=== PATIENT | female | born 1965 | race Caucasian/White ===

== ENCOUNTER → 2017-02-16 | Outpatient (CLI) | payer OTHER ==
[~2017-02-16] MED LIST: AMOXICILLIN500 MG PO; ATIVAN0.5 MG PO; DAYPRO600 M1 PO; MACROBID100 M1 PO; MOTRIN800 MG PO; NORFLEX100 MG PO; PHENOBARBITAL PO; PHENOBARBITAL30 MG PO; PHENOBARBITAL32.4 M1 PO; PHENOBARBITAL64.8 MG PO; TEGRETOL100 MG PO; VICODIN 500 MG-1 TAB PO; VIMPAT100 MG PO; XANAX0.25 MG PO
== END | disposition home or self-care (01) ==
LOC: MAMMO 15:23
DX: Z12.31 Encounter for screening mammogram for malignant neoplasm of breast (principal)

== ENCOUNTER → 2017-03-01 | Outpatient (CLI) | payer OTHER | END | disposition home or self-care (01) | LOC: RAD 11:37 | DX: R07.9 Chest pain, unspecified (principal); R06.02 Shortness of breath; Z87.891 Personal history of nicotine dependence ==

== ENCOUNTER 2017-03-15 19:20 | Emergency (ER) | payer OTHER ==
[~2017-03-15] VITALS: Ht 152.4 cm; Wt 56.2 kg
[2017-03-15 19:32] VITALS: BP 139/98
== END 2017-03-15 20:19 | disposition home or self-care (01) ==
LOC: ED 19:20
DX: S61.012A Laceration without foreign body of left thumb without damage to nail, initial encounter (principal); G40.909 Epilepsy, unspecified, not intractable, without status epilepticus; Z98.51 Tubal ligation status; Z88.2 Allergy status to sulfonamides; W45.8XXA Other foreign body or object entering through skin, initial encounter; Y93.89 Activity, other specified; Y92.89 Other specified places as the place of occurrence of the external cause; Y99.9 Unspecified external cause status

== ENCOUNTER 2017-07-14 16:38 | Emergency (ER) | payer OTHER ==
[~2017-07-14] VITALS: Wt 58.1 kg
[2017-07-14 17:09] LABS: BASO % 0.3 % (0.0-1.0); EOS # 0.1 10*3/uL (0.0-0.4); EOS % 1.3 % (1.0-4.0); HEMATOCRIT 42.9 % (37.0-47.0); HEMOGLOBIN 14.8 g/dl (12.0-16.0); LYMPH # 0.7 10*3/uL (1.3-4.4); LYMPH % 12.1 % (27.0-41.0); MEAN CELL VOLUME 97.5 fl (81.0-99.0); MEAN CORPUSCULAR HGB 33.6 pg (27.0-31.0); MEAN CORPUSCULAR HGB CONC 34.5 g/dl (33.0-37.0); MEAN PLATELET VOLUME 10.1 fl (9.6-12.3); MONO # 0.3 10*3/uL (0.1-1.0); MONO % 4.4 % (3.0-9.0); NEUT % 81.7 % (47.0-73.0); PLATELET COUNT AUTOMATED 196 10*3/uL (130-400); RED CELL DISTRI WIDTH 11.7 % (0-14.5); WHITE BLOOD COUNT 6.1 10*3/uL (4.8-10.8)
[2017-07-14 17:18] LABS: ACT PARTIAL THROMBO TIME 22.9 SECONDS (20.8-31.5)
[2017-07-14 17:25] LABS: ALBUMIN 4.3 gm/dl (3.1-4.5); ALKALINE PHOSPHATASE 107 U/L (45-117); BUN 11 mg/dl (7-24); CHLORIDE 99 mmol/L (98-107); POTASSIUM 4.1 mmol/L (3.5-5.1); SGOT/AST 24 IU/L (3-35); SGPT/ALT 31 U/L (12-78); SODIUM 135 mmol/L (136-145); TOTAL PROTEIN 7.8 gm/dL (6.4-8.2)
[2017-07-14 17:26] LABS: PHENOBARBITAL (LUMINAL) 20.2 ug/ml (15-40)
[2017-07-14 18:07] LABS: BILIRUBIN NEGATIVE (NEGATIVE); BLOOD TRACE-INTACT (NEGATIVE); CLARITY CLEAR (CLEAR); COLOR YELLOW (YELLOW); GLUCOSE NEGATIVE (NEGATIVE); KETONE NEGATIVE (NEGATIVE); LEUKO ESTERASE 3+ (NEGATIVE); NITRITE NEGATIVE (NEGATIVE); SPECIFIC GRAVITY <= 1.005 (1.005-1.030); UROBILINOGEN 0.2 E.U./dl (0.2-1.0)
[2017-07-14 18:14] LABS: BACTERIA 3+; WBC 31-40 wbc/hpf (0-5)
[2017-07-15 18:32] VITALS: BP 144/72
== END 2017-07-15 18:35 | disposition short-term general hospital (02) ==
LOC: ED 16:38
PROVIDERS: Emergency Medicine
DX: G40.909 Epilepsy, unspecified, not intractable, without status epilepticus (principal); R53.83 Other fatigue; Z88.2 Allergy status to sulfonamides

== ENCOUNTER 2017-09-19 14:15 | Emergency (ER) | payer OTHER ==
[~2017-09-19] VITALS: Wt 56.2 kg
[2017-09-19 14:45] LABS: BILIRUBIN NEGATIVE (NEGATIVE); BLOOD NEGATIVE (NEGATIVE); CLARITY SL CLOUDY (CLEAR); COLOR YELLOW (YELLOW); GLUCOSE NEGATIVE (NEGATIVE); KETONE NEGATIVE (NEGATIVE); LEUKO ESTERASE 2+ (NEGATIVE); NITRITE NEGATIVE (NEGATIVE); UROBILINOGEN 0.2 E.U./dl (0.2-1.0)
[2017-09-19 14:49] LABS: BACTERIA 2+; RBC 0-2 rbc/hpf (0-2); WBC 21-30 wbc/hpf (0-5)
[2017-09-19 14:51] VITALS: BP 140/76
[2017-09-19 14:57] LABS: BUN 12 mg/dl (7-24); CHLORIDE 99 mmol/L (98-107); CREATININE 0.89 mg/dL (0.55-1.02); POTASSIUM 3.9 mmol/L (3.5-5.1); SODIUM 135 mmol/L (136-145)
[2017-09-19 15:14] LABS: PHENOBARBITAL (LUMINAL) 22.3 ug/ml (15-40)
== END 2017-09-19 15:25 | disposition home or self-care (01) ==
LOC: ED 14:15
PROVIDERS: Emergency Medicine
DX: F41.0 Panic disorder [episodic paroxysmal anxiety] (principal); Z88.2 Allergy status to sulfonamides

== ENCOUNTER 2017-10-24 08:28 | Emergency (ER) | payer OTHER ==
[~2017-10-24] VITALS: Ht 157.4 cm; Wt 57.6 kg
[2017-10-24 08:32] VITALS: BP 142/92
== END 2017-10-24 09:53 | disposition home or self-care (01) ==
LOC: ED 08:28
DX: S99.191A Other physeal fracture of right metatarsal, initial encounter for closed fracture (principal); Z88.2 Allergy status to sulfonamides; W01.0XXA Fall on same level from slipping, tripping and stumbling without subsequent striking against object, initial encounter; Y93.89 Activity, other specified; Y92.89 Other specified places as the place of occurrence of the external cause; Y99.8 Other external cause status

== ENCOUNTER → 2017-10-28 | Outpatient (CLI) | payer OTHER | END | disposition home or self-care (01) | LOC: ORTHO 03:40 | DX: S92.353A Displaced fracture of fifth metatarsal bone, unspecified foot, initial encounter for closed fracture (principal); E55.9 Vitamin D deficiency, unspecified; X58.XXXA Exposure to other specified factors, initial encounter; Y93.89 Activity, other specified; Y92.89 Other specified places as the place of occurrence of the external cause; Y99.8 Other external cause status ==

== ENCOUNTER → 2017-10-29 | Outpatient (CLI) | payer OTHER | END | disposition home or self-care (01) | LOC: RAD 10:24 | DX: M50.322 Other cervical disc degeneration at C5-C6 level (principal) ==

== ENCOUNTER → 2017-11-08 | Outpatient (CLI) | payer OTHER | END | disposition home or self-care (01) | LOC: ORTHO 01:55 | DX: Z47.89 Encounter for other orthopedic aftercare (principal) ==

== ENCOUNTER → 2017-12-10 | Outpatient (CLI) | payer OTHER | END | disposition home or self-care (01) | LOC: ORTHO 04:08 | DX: S92.351D Displaced fracture of fifth metatarsal bone, right foot, subsequent encounter for fracture with routine healing (principal); X58.XXXD Exposure to other specified factors, subsequent encounter ==

== ENCOUNTER → 2017-12-27 | Outpatient (CLI) | payer OTHER | END | disposition home or self-care (01) | LOC: ORTHO 01:03 | DX: S82.831D Other fracture of upper and lower end of right fibula, subsequent encounter for closed fracture with routine healing (principal); X58.XXXD Exposure to other specified factors, subsequent encounter ==

== ENCOUNTER 2018-04-10 09:05 | Emergency (ER) | payer OTHER ==
[~2018-04-10] VITALS: Ht 154.9 cm; Wt 58.1 kg
[2018-04-10 09:08] VITALS: BP 141/91
[2018-04-10] MEDS ORDERED: ROBAXIN500 M1 PO (10:59)
== END 2018-04-10 11:01 | disposition home or self-care (01) ==
LOC: ED 09:05
DX: S29.011A Strain of muscle and tendon of front wall of thorax, initial encounter (principal); Z88.2 Allergy status to sulfonamides; X58.XXXA Exposure to other specified factors, initial encounter; Y93.89 Activity, other specified; Y92.89 Other specified places as the place of occurrence of the external cause; Y99.8 Other external cause status

== ENCOUNTER 2018-06-01 15:28 | Emergency (ER) | payer OTHER ==
[~2018-06-01] VITALS: Wt 57.2 kg
[~2018-06-01 15:28] MED LIST changes: +ROBAXIN500 M1 PO
[2018-06-01 15:29] VITALS: BP 172/110
== END 2018-06-01 16:27 | disposition home or self-care (01) ==
LOC: ED 15:28
DX: T23.241A Burn of second degree of multiple right fingers (nail), including thumb, initial encounter (principal); T23.232A Burn of second degree of multiple left fingers (nail), not including thumb, initial encounter; Z88.2 Allergy status to sulfonamides; X08.8XXA Exposure to other specified smoke, fire and flames, initial encounter; Y93.89 Activity, other specified; Y92.89 Other specified places as the place of occurrence of the external cause; Y99.8 Other external cause status

== ENCOUNTER 2018-07-08 15:57 | Emergency (ER) | payer OTHER ==
[~2018-07-08] VITALS: Ht 152.4 cm; Wt 57.2 kg
[2018-07-08 16:06] VITALS: BP 140/68
== END 2018-07-08 18:00 | disposition home or self-care (01) ==
LOC: ED 15:57
DX: M79.604 Pain in right leg (principal); R03.0 Elevated blood-pressure reading, without diagnosis of hypertension; Z88.2 Allergy status to sulfonamides; Z79.899 Other long term (current) drug therapy; W00.0XXA Fall on same level due to ice and snow, initial encounter; Y93.89 Activity, other specified; Y92.89 Other specified places as the place of occurrence of the external cause; Y99.8 Other external cause status

== ENCOUNTER → 2018-07-08 | Outpatient (CLI) | payer OTHER | END | disposition home or self-care (01) | LOC: RAD 10:31 | DX: M25.561 Pain in right knee (principal); M79.604 Pain in right leg; W19.XXXD Unspecified fall, subsequent encounter ==

== ENCOUNTER 2018-09-13 13:28 | Emergency (ER) | payer OTHER ==
[~2018-09-13] VITALS: Ht 154.9 cm; Wt 57.2 kg
[2018-09-13 13:29] VITALS: BP 156/99
== END 2018-09-13 16:29 | disposition home or self-care (01) ==
LOC: ED 13:28
DX: S92.411A Displaced fracture of proximal phalanx of right great toe, initial encounter for closed fracture (principal); G40.909 Epilepsy, unspecified, not intractable, without status epilepticus; Z98.51 Tubal ligation status; Z88.2 Allergy status to sulfonamides; W10.8XXA Fall (on) (from) other stairs and steps, initial encounter; Y93.89 Activity, other specified; Y92.89 Other specified places as the place of occurrence of the external cause; Y99.9 Unspecified external cause status

== ENCOUNTER 2018-09-22 10:26 | Emergency (ER) | payer OTHER ==
[~2018-09-22] VITALS: Ht 152.4 cm; Wt 58.1 kg
[2018-09-22 10:27] VITALS: BP 160/90
== END 2018-09-22 12:09 | disposition home or self-care (01) ==
LOC: ED 10:26
DX: S62.311A Displaced fracture of base of second metacarpal bone, left hand, initial encounter for closed fracture (principal); Z88.2 Allergy status to sulfonamides; W18.39XA Other fall on same level, initial encounter; Y93.89 Activity, other specified; Y92.89 Other specified places as the place of occurrence of the external cause; Y99.8 Other external cause status

== ENCOUNTER → 2018-09-26 | Outpatient (CLI) | payer OTHER | END | disposition home or self-care (01) | LOC: ORTHO 00:59 | DX: S62.301A Unspecified fracture of second metacarpal bone, left hand, initial encounter for closed fracture (principal); S62.002A Unspecified fracture of navicular [scaphoid] bone of left wrist, initial encounter for closed fracture; M19.032 Primary osteoarthritis, left wrist; X58.XXXA Exposure to other specified factors, initial encounter; Y93.89 Activity, other specified; Y92.89 Other specified places as the place of occurrence of the external cause; Y99.8 Other external cause status ==

== ENCOUNTER → 2018-09-28 | Outpatient (CLI) | payer OTHER | END | disposition home or self-care (01) | LOC: MRI 15:00 | DX: S62.311A Displaced fracture of base of second metacarpal bone, left hand, initial encounter for closed fracture (principal); M19.042 Primary osteoarthritis, left hand; M93.1 Kienbock's disease of adults; M67.442 Ganglion, left hand; M79.89 Other specified soft tissue disorders; X58.XXXA Exposure to other specified factors, initial encounter; Y93.89 Activity, other specified; Y92.89 Other specified places as the place of occurrence of the external cause; Y99.8 Other external cause status ==

== ENCOUNTER → 2018-12-09 | Outpatient (CLI) | payer OTHER | END | disposition home or self-care (01) | LOC: ORTHO 00:17 | DX: S62.340D Nondisplaced fracture of base of second metacarpal bone, right hand, subsequent encounter for fracture with routine healing (principal); X58.XXXD Exposure to other specified factors, subsequent encounter ==

== ENCOUNTER 2019-06-19 11:11 | Emergency (ER) | payer OTHER ==
[~2019-06-19] VITALS: Ht 154.9 cm; Wt 58.1 kg
[2019-06-19 11:15] VITALS: BP 169/99
[2019-06-19] MEDS ORDERED: PREDNISONE50 MG PO (12:58)
== END 2019-06-19 12:58 | disposition home or self-care (01) ==
LOC: ED 11:11
DX: M77.9 Enthesopathy, unspecified (principal); M25.532 Pain in left wrist; G40.909 Epilepsy, unspecified, not intractable, without status epilepticus; I10 Essential (primary) hypertension; Z88.2 Allergy status to sulfonamides; Z79.899 Other long term (current) drug therapy

== ENCOUNTER 2019-09-17 21:11 | Inpatient (IN) | payer OTHER ==
[~2019-09-17] VITALS: Ht 154.9 cm; Wt 60.9 kg
[~2019-09-17 21:11] MED LIST changes: +PREDNISONE50 MG PO
[2019-09-17 21:15] VITALS: BP 166/118
[2019-09-17 21:43] VITALS: BP 131/87
--- NOTE | 2019-09-17 22:21 | NUR ---
ATTEMPTED TO COLLECT URINE SPECIMEN. PT MISSED HAT WHEN URINATING. WILL TRY AGAIN LATER. PT VISIBLY UPSET AND WANTED TO CONTACT HER . [employer] INTACT. VSS. CALL LIGHT WITHIN REACH.
[2019-09-17 22:25] LABS: BASO % 0.8 % (0.0-1.0); EOS # 0.2 10*3/uL (0.0-0.4); EOS % 3.4 % (1.0-4.0); HEMATOCRIT 43.9 % (37.0-47.0); LYMPH # 1.1 10*3/uL (1.3-4.4); LYMPH % 22.3 % (27.0-41.0); MEAN CELL VOLUME 98.9 fl (81.0-99.0); MEAN CORPUSCULAR HGB 34.7 pg (27.0-31.0); MEAN CORPUSCULAR HGB CONC 35.1 g/dl (33.0-37.0); MEAN PLATELET VOLUME 9.4 fl (9.6-12.3); MONO # 0.4 10*3/uL (0.1-1.0); MONO % 7.4 % (3.0-9.0); NEUT # 3.3 10*3/uL (2.3-7.9); NEUT % 65.5 % (47.0-73.0); PLATELET COUNT AUTOMATED 181 10*3/uL (130-400); RED BLOOD COUNT 4.44 10*6/uL (4.10-5.10); RED CELL DISTRI WIDTH 11.9 % (0-14.5)
[2019-09-17 22:40] LABS: ACT PARTIAL THROMBO TIME 27.7 SECONDS (20.0-32.1); INTERNATIONAL NORM RATIO 0.9 (2.0-3.5)
[2019-09-17 22:42] LABS: ALBUMIN 4.2 gm/dl (3.1-4.5); ALKALINE PHOSPHATASE 111 U/L (45-117); BUN 12 mg/dl (7-24); CHLORIDE 101 mmol/L (98-107); CREATININE 0.68 mg/dL (0.55-1.02); LIPASE 111 U/L (73-393); POTASSIUM 3.5 mmol/L (3.5-5.1); SGOT/AST 22 IU/L (3-35); SGPT/ALT 33 U/L (12-78); SODIUM 130 mmol/L (136-145); TOTAL PROTEIN 7.8 gm/dL (6.4-8.2)
[2019-09-17 22:51] VITALS: BP 133/76
[2019-09-17 22:53] LABS: ACETAMINOPHEN (TYLENOL) < 5.0 ug/ml (10-30); TROPONIN I < 0.015 ng/ml (<0.045)
[2019-09-18 01:05] VITALS: BP 131/77
--- NOTE | 2019-09-18 01:05 | NUR ---
A 54, admitted to , under the services of DEMETRIUS Paulson DO with a diagnosis of SEIZURES,ALCOHOL INTOXICATION. Chief complaint is SEIZURE. Patient arrived via stretcher from ER. Monitor applied. Initial assessment completed. Vital signs taken and recorded. DR. MARINELLI notified of admission to the unit. Orders received. See assessment for past medical history, medications and allergies. Patient and/or family oriented to [facility]. visitation policy reviewed. Clothing/patient valuable form completed. RODRÍGUEZ ROBBINS RN
[2019-09-18 06:03] LABS: BASO % 0.8 % (0.0-1.0); EOS # 0.2 10*3/uL (0.0-0.4); HEMATOCRIT 41.6 % (37.0-47.0); LYMPH # 1.4 10*3/uL (1.3-4.4); LYMPH % 39.8 % (27.0-41.0); MEAN CELL VOLUME 100.7 fl (81.0-99.0); MEAN CORPUSCULAR HGB 34.4 pg (27.0-31.0); MEAN CORPUSCULAR HGB CONC 34.1 g/dl (33.0-37.0); MEAN PLATELET VOLUME 9.8 fl (9.6-12.3); MONO # 0.3 10*3/uL (0.1-1.0); MONO % 7.7 % (3.0-9.0); NEUT # 1.7 10*3/uL (2.3-7.9); NEUT % 46.1 % (47.0-73.0); PLATELET COUNT AUTOMATED 189 10*3/uL (130-400); RED BLOOD COUNT 4.13 10*6/uL (4.10-5.10); WHITE BLOOD COUNT 3.6 10*3/uL (4.8-10.8)
[2019-09-18 06:16] LABS: BUN 8 mg/dl (7-24); CHLORIDE 109 mmol/L (98-107); CHOLESTEROL 202 mg/dL (<200); CREATININE 0.69 mg/dL (0.55-1.02); SODIUM 141 mmol/L (136-145); TRIGLYCERIDES 121 mg/dl (<150); VLDL CHOLESTEROL 24 mg/dL (6-40)
[2019-09-18 06:26] LABS: HDL CHOLESTEROL 67 mg/dl (40-60); LDL CHOLESTEROL 111 mg/dL (9-159)
[2019-09-18 07:09] LABS: VITAMIN D, 25-HYDROXY 24.6 ng/mL (30-100)
[2019-09-18 08:00] VITALS: BP 136/84
--- NOTE | 2019-09-18 09:00 | NUR ---
[employer] in to talk to patient. Patient states lives at home with . There are no steps in the home. Physician: licha [facility]: [facility] [place] [facility] services: none Patient's level of ADLs: INDEPENDENT Patient has working utilities: all working DME: none Follow-up physician's appointment after d/c: will be made by hospitalist nurse director upon discharge Does patient want to access PORTAL?: no Discharge plan discussed with patient, she lives at home with her , she is independent in adls and ambulation, works, she states she will return home when medically stable and denies any home needs. HAYES MARCOS
--- NOTE | 2019-09-18 09:40 | NUR ---
PT MEDICATED WITH PRN TYLENOL FOR C/O A HEADACHE.
[2019-09-18] MEDS ORDERED: VITAMIN D3125 MC1 PO (09:45)
--- NOTE | 2019-09-18 11:09 | NUR ---
PT DISCHARGED HOME AT THIS TIME. [employer] PROGRAMMER DISCONTINUED. PT AMBULATED OFF THE FLOOR TO PRIVATE CAR.
== END 2019-09-18 11:40 | disposition home or self-care (01) | DRG 897 ==
LOC: ED 21:11 → 4E 09-18 00:23 → EDHOLD 09-18 00:23 → 4E 09-18 00:33
PROVIDERS: Emergency Medicine Emergency Medical Services; Internal Medicine; ADMIT Internal Medicine
DX: F10.929 Alcohol use, unspecified with intoxication, unspecified (principal); E87.1 Hypo-osmolality and hyponatremia; R65.10 Systemic inflammatory response syndrome (SIRS) of non-infectious origin without acute organ dysfunction; D72.819 Decreased white blood cell count, unspecified; I10 Essential (primary) hypertension; E87.8 Other disorders of electrolyte and fluid balance, not elsewhere classified; G40.909 Epilepsy, unspecified, not intractable, without status epilepticus; E55.9 Vitamin D deficiency, unspecified; S00.01XA Abrasion of scalp, initial encounter; W18.30XA Fall on same level, unspecified, initial encounter; Y93.89 Activity, other specified; Y92.098 Other place in other non-institutional residence as the place of occurrence of the external cause; Y99.8 Other external cause status; Z88.2 Allergy status to sulfonamides; Z98.51 Tubal ligation status; Z80.8 Family history of malignant neoplasm of other organs or systems; Z82.49 Family history of ischemic heart disease and other diseases of the circulatory system; Z83.3 Family history of diabetes mellitus; Z79.899 Other long term (current) drug therapy

== ENCOUNTER → 2019-09-28 | Outpatient (CLI) | payer OTHER ==
[~2019-09-28] MED LIST changes: +VITAMIN D3125 MC1 PO
== END | disposition home or self-care (01) ==
LOC: RAD 10:52
DX: S23.41XA Sprain of ribs, initial encounter (principal); R07.89 Other chest pain; X58.XXXA Exposure to other specified factors, initial encounter; Y93.89 Activity, other specified; Y92.89 Other specified places as the place of occurrence of the external cause; Y99.8 Other external cause status

== ENCOUNTER → 2020-03-13 | Outpatient (CLI) | payer OTHER | END | disposition home or self-care (01) | LOC: LAB 14:15 | PROVIDERS: ATTEND Psychiatry & Neurology Neurology | DX: R56.9 Unspecified convulsions (principal) ==

== ENCOUNTER → 2020-03-29 | Outpatient (CLI) | payer OTHER | END | disposition home or self-care (01) | LOC: RAD 11:37 | PROVIDERS: ATTEND Student in an Organized Health Care Education/Training Program | DX: S02.612A Fracture of condylar process of left mandible, initial encounter for closed fracture (principal); X58.XXXA Exposure to other specified factors, initial encounter; Y93.89 Activity, other specified; Y92.89 Other specified places as the place of occurrence of the external cause; Y99.8 Other external cause status ==

== ENCOUNTER 2020-06-21 00:34 | Emergency (ER) | payer OTHER ==
[~2020-06-21] VITALS: Ht 157.4 cm; Wt 70.3 kg
[2020-06-21 00:53] VITALS: BP 151/90
[2020-06-21] MEDS ORDERED: AUGMENTIN 875875 MG PO (03:50)
== END 2020-06-21 04:17 | disposition home or self-care (01) ==
LOC: ED 00:34
DX: S61.451A Open bite of right hand, initial encounter (principal); S51.851A Open bite of right forearm, initial encounter; W54.0XXA Bitten by dog, initial encounter; Y93.89 Activity, other specified; Y92.89 Other specified places as the place of occurrence of the external cause; Y99.8 Other external cause status

== ENCOUNTER → 2020-06-27 | Outpatient (CLI) | payer OTHER ==
[~2020-06-27] MED LIST changes: +AUGMENTIN 875875 MG PO
== END | disposition home or self-care (01) ==
LOC: RAD 12:07
PROVIDERS: ATTEND Nurse Practitioner Primary Care
DX: M25.531 Pain in right wrist (principal)

== ENCOUNTER → 2021-02-10 | Outpatient (CLI) | payer OTHER | END | disposition home or self-care (01) | LOC: RAD 11:49 | PROVIDERS: ATTEND Chiropractor | DX: S22.080A Wedge compression fracture of T11-T12 vertebra, initial encounter for closed fracture (principal); M43.06 Spondylolysis, lumbar region; X58.XXXA Exposure to other specified factors, initial encounter ==

== ENCOUNTER 2022-01-03 14:16 | Emergency (ER) | payer OTHER ==
[2022-01-03 14:25] VITALS: BP 141/99
== END 2022-01-03 16:50 | disposition home or self-care (01) ==
LOC: ED 14:16
DX: S61.213A Laceration without foreign body of left middle finger without damage to nail, initial encounter (principal); L08.89 Other specified local infections of the skin and subcutaneous tissue; Z79.899 Other long term (current) drug therapy; Z88.2 Allergy status to sulfonamides; W18.30XA Fall on same level, unspecified, initial encounter; Y93.89 Activity, other specified; Y92.89 Other specified places as the place of occurrence of the external cause; Y99.9 Unspecified external cause status

== ENCOUNTER → 2022-11-09 | Day surgery (SDC) | payer OTHER ==
[~2022-11-09] VITALS: Ht 154.9 cm; Wt 52.6 kg
[2022-11-09 07:26] VITALS: BP 143/94
[2022-11-09 08:27] VITALS: BP 110/68
[2022-11-09 08:42] VITALS: BP 116/76
[2022-11-09 08:57] VITALS: BP 134/89
== END ==
LOC: SDC 11-05 12:30
PROVIDERS: ATTEND Surgery
DX: Z12.11 Encounter for screening for malignant neoplasm of colon (principal); K21.9 Gastro-esophageal reflux disease without esophagitis; K29.50 Unspecified chronic gastritis without bleeding; K57.90 Diverticulosis of intestine, part unspecified, without perforation or abscess without bleeding; Z87.891 Personal history of nicotine dependence

== ENCOUNTER → 2023-03-31 | Outpatient (CLI) | payer OTHER ==
[2023-03-31 12:18] LABS: BASO % 0.4 % (0.0-1.0); EOS # 0.4 10*3/uL (0.0-0.4); EOS % 5.5 % (1.0-4.0); HEMATOCRIT 43.4 % (37.0-47.0); LYMPH # 1.2 10*3/uL (1.3-4.4); LYMPH % 16.8 % (27.0-41.0); MEAN CELL VOLUME 101.6 fl (81.0-99.0); MEAN CORPUSCULAR HGB CONC 33.4 g/dl (33.0-37.0); MEAN PLATELET VOLUME 9.9 fl (9.6-12.3); MONO # 0.4 10*3/uL (0.1-1.0); MONO % 4.8 % (3.0-9.0); NEUT # 5.2 10*3/uL (2.3-7.9); NEUT % 72.1 % (47.0-73.0); PLATELET COUNT AUTOMATED 224 10*3/uL (130-400); RED BLOOD COUNT 4.27 10*6/uL (4.10-5.10); RED CELL DISTRI WIDTH 11.5 % (0-14.5); WHITE BLOOD COUNT 7.3 10*3/uL (4.8-10.8)
[2023-03-31 12:42] LABS: ALKALINE PHOSPHATASE 105 U/L (46-116); BUN 11 mg/dl (9-23); CHLORIDE 103 mmol/L (98-107); POTASSIUM 3.9 mmol/L (3.4-5.1); SGPT/ALT 16 U/L (5-49); TOTAL PROTEIN 6.8 gm/dL (6.0-8.0)
== END | disposition home or self-care (01) ==
LOC: LAB 11:40
PROVIDERS: ATTEND Nurse Practitioner Primary Care
DX: Z79.899 Other long term (current) drug therapy (principal); Z87.898 Personal history of other specified conditions

== ENCOUNTER → 2023-12-24 | Outpatient (CLI) | payer OTHER | END | disposition home or self-care (01) | LOC: RAD 12:10 → EDSTATUS 12:13 | PROVIDERS: ATTEND Podiatrist | DX: M25.872 Other specified joint disorders, left ankle and foot (principal); M25.871 Other specified joint disorders, right ankle and foot; M79.672 Pain in left foot; M79.671 Pain in right foot ==

== ENCOUNTER → 2024-03-06 | Outpatient (CLI) | payer OTHER ==
[2024-03-06 11:33] LABS: BASO % 0.5 % (0.0-1.0); EOS # 0.2 10*3/uL (0.0-0.4); EOS % 5.1 % (1.0-4.0); HEMATOCRIT 44.7 % (37.0-47.0); LYMPH # 1.2 10*3/uL (1.3-4.4); LYMPH % 26.8 % (27.0-41.0); MEAN CELL VOLUME 95.3 fl (81.0-99.0); MEAN CORPUSCULAR HGB 30.9 pg (27.0-31.0); MEAN CORPUSCULAR HGB CONC 32.4 g/dl (33.0-37.0); MEAN PLATELET VOLUME 9.6 fl (9.6-12.3); MONO # 0.2 10*3/uL (0.1-1.0); MONO % 5.4 % (3.0-9.0); NEUT # 2.6 10*3/uL (2.3-7.9); NEUT % 61.5 % (47.0-73.0); PLATELET COUNT AUTOMATED 201 10*3/uL (130-400); RED BLOOD COUNT 4.69 10*6/uL (4.10-5.10); RED CELL DISTRI WIDTH 12.4 % (0-14.5); WHITE BLOOD COUNT 4.3 10*3/uL (4.8-10.8)
[2024-03-06 12:09] LABS: ALKALINE PHOSPHATASE 111 U/L (46-116); BUN 8 mg/dl (9-23); CHLORIDE 103 mmol/L (98-107); POTASSIUM 4.2 mmol/L (3.4-5.1); SGPT/ALT 9 U/L (5-49); TOTAL PROTEIN 7.2 gm/dL (6.0-8.0)
== END | disposition home or self-care (01) ==
LOC: LAB 11:08
PROVIDERS: ATTEND Nurse Practitioner Primary Care
DX: Z01.818 Encounter for other preprocedural examination (principal); M21.612 Bunion of left foot; Z87.898 Personal history of other specified conditions; M47.817 Spondylosis without myelopathy or radiculopathy, lumbosacral region

== ENCOUNTER → 2024-03-15 | Day surgery (SDC) | payer OTHER ==
[2024-03-15] VITALS (7 sets, daily range): BP systolic 82–126; BP diastolic 55–78
[~2024-03-15] VITALS: Ht 152.4 cm; Wt 56.2 kg
[~2024-03-15] MED LIST changes: +ACETAMINOPHEN 100 ML IV ONE; +BUPIVACAINE 0.5% 30 ML IV ONE; +DEXMEDETOMIDINE HCL 200 MCG/2 ML VIAL IV ONE; +DOXYCYCLINE HY100 M3 PO; +Dexamethasone Sodium Phospha 4 MG/ML VIAL IV ONE; +GOOD SENSE ASP325 MG PO; +Ketorolac Tromethamine 30 MG/ML VIAL IV ONE; +Lactated Ringer's Solution 1,000 ML IV ONE; +Lactated Ringer's Solution 1,000 ML IV SCH; +Lidocaine Hydrochloride 5 ML VIAL IV ONE; +Midazolam Hydrochloride 2 MG/2 ML VIAL IV ONE; +Ondansetron Hydrochloride 4 MG/2 ML VIAL IV ONE; +PROPOFOL 200 MG/20 ML VIAL IV ONE; +SEVOFLURANE 250 ML BOT INH ONE; +SODIUM CHLORIDE 0.9% 1,000 ML IV ONE; +TRAMADOL HCL50 MG PO; +TYLENOL EXTRA500 MG PO; +Vancomycin Hydrochloride 1,000 MG VIAL ONE; +ceFAZolin sodium 2GM/20ML IV ONE; +ceFAZolin sodium/sodium chlor 20 ML IV ONE; +fentaNYL CITRATE 100 MCG/2 ML VIAL IV ONE
[2024-03-16 15:07] LABS: ACID FAST SPEC PROCESSING Tissue Grinding (.)
== END | disposition home or self-care (01) ==
LOC: SDC 03-10 11:00
PROVIDERS: ATTEND Podiatrist
DX: M62.462 Contracture of muscle, left lower leg (principal); M21.072 Valgus deformity, not elsewhere classified, left ankle; M20.12 Hallux valgus (acquired), left foot; I10 Essential (primary) hypertension; F41.9 Anxiety disorder, unspecified; Z87.891 Personal history of nicotine dependence; Z98.51 Tubal ligation status; Z98.890 Other specified postprocedural states; Z88.2 Allergy status to sulfonamides; Z79.899 Other long term (current) drug therapy; Z83.3 Family history of diabetes mellitus; Z80.3 Family history of malignant neoplasm of breast; Z82.49 Family history of ischemic heart disease and other diseases of the circulatory system

== ENCOUNTER → 2024-04-17 | Outpatient (CLI) | payer OTHER ==
[~2024-04-17] MED LIST changes: -ACETAMINOPHEN 100 ML IV ONE; -BUPIVACAINE 0.5% 30 ML IV ONE; -DEXMEDETOMIDINE HCL 200 MCG/2 ML VIAL IV ONE; -Dexamethasone Sodium Phospha 4 MG/ML VIAL IV ONE; -Ketorolac Tromethamine 30 MG/ML VIAL IV ONE; -Lactated Ringer's Solution 1,000 ML IV ONE; -Lactated Ringer's Solution 1,000 ML IV SCH; -Lidocaine Hydrochloride 5 ML VIAL IV ONE; -Midazolam Hydrochloride 2 MG/2 ML VIAL IV ONE; -Ondansetron Hydrochloride 4 MG/2 ML VIAL IV ONE; -PROPOFOL 200 MG/20 ML VIAL IV ONE; -SEVOFLURANE 250 ML BOT INH ONE; -SODIUM CHLORIDE 0.9% 1,000 ML IV ONE; -Vancomycin Hydrochloride 1,000 MG VIAL ONE; -ceFAZolin sodium 2GM/20ML IV ONE; -ceFAZolin sodium/sodium chlor 20 ML IV ONE; -fentaNYL CITRATE 100 MCG/2 ML VIAL IV ONE
[2024-04-17 15:45] LABS: BASO % 0.7 % (0.0-1.0); EOS # 0.4 10*3/uL (0.0-0.4); EOS % 9.4 % (1.0-4.0); HEMATOCRIT 40.4 % (37.0-47.0); MEAN CELL VOLUME 94.8 fl (81.0-99.0); MEAN CORPUSCULAR HGB 31.2 pg (27.0-31.0); MEAN CORPUSCULAR HGB CONC 32.9 g/dl (33.0-37.0); MEAN PLATELET VOLUME 9.3 fl (9.6-12.3); MONO # 0.2 10*3/uL (0.1-1.0); MONO % 5.4 % (3.0-9.0); NEUT # 2.3 10*3/uL (2.3-7.9); NEUT % 57.5 % (47.0-73.0); PLATELET COUNT AUTOMATED 261 10*3/uL (130-400); RED BLOOD COUNT 4.26 10*6/uL (4.10-5.10); RED CELL DISTRI WIDTH 12.6 % (0-14.5)
[2024-04-17 16:06] LABS: ALKALINE PHOSPHATASE 144 U/L (46-116); SGPT/ALT 9 U/L (5-49); TOTAL PROTEIN 7.2 gm/dL (6.0-8.0)
[2024-04-17 16:09] LABS: ALKALINE PHOSPHATASE 143 U/L (46-116); BUN 8 mg/dl (9-23); CHLORIDE 102 mmol/L (98-107); CHOLESTEROL 215 mg/dL (<200); LDL CHOLESTEROL 125 mg/dL (9-159); POTASSIUM 3.7 mmol/L (3.4-5.1); SGPT/ALT 9 U/L (5-49); TOTAL PROTEIN 7.2 gm/dL (6.0-8.0); TRIGLYCERIDES 187 mg/dl (<150); VITAMIN D, 25-HYDROXY 64.4 ng/mL (30-100)
== END | disposition home or self-care (01) ==
LOC: MRI 14:00 → LAB 14:13
PROVIDERS: Nurse Practitioner Primary Care; ATTEND Psychiatry & Neurology Neurology
DX: I67.82 Cerebral ischemia (principal); G40.309 Generalized idiopathic epilepsy and epileptic syndromes, not intractable, without status epilepticus; E55.9 Vitamin D deficiency, unspecified; Z87.898 Personal history of other specified conditions

== ENCOUNTER → 2024-07-10 | Outpatient (CLI) | payer OTHER | END | disposition home or self-care (01) | LOC: MAMMO 09:37 | PROVIDERS: ATTEND Nurse Practitioner Primary Care | DX: Z12.31 Encounter for screening mammogram for malignant neoplasm of breast (principal); R92.333 Mammographic heterogeneous density, bilateral breasts ==

== ENCOUNTER → 2024-08-11 | Outpatient (CLI) | payer OTHER ==
[2024-08-11 11:57] LABS: BASO % 0.6 % (0.0-1.0); EOS # 0.2 10*3/uL (0.0-0.4); EOS % 3.4 % (1.0-4.0); HEMATOCRIT 43.7 % (37.0-47.0); MEAN CELL VOLUME 93.4 fl (81.0-99.0); MEAN CORPUSCULAR HGB 31.4 pg (27.0-31.0); MEAN CORPUSCULAR HGB CONC 33.6 g/dl (33.0-37.0); MEAN PLATELET VOLUME 9.6 fl (9.6-12.3); MONO # 0.3 10*3/uL (0.1-1.0); MONO % 5.6 % (3.0-9.0); NEUT # 3.5 10*3/uL (2.3-7.9); NEUT % 71.3 % (47.0-73.0); PLATELET COUNT AUTOMATED 223 10*3/uL (130-400); RED BLOOD COUNT 4.68 10*6/uL (4.10-5.10); RED CELL DISTRI WIDTH 13.4 % (0-14.5)
[2024-08-11 12:32] LABS: ALKALINE PHOSPHATASE 118 U/L (46-116); BUN 11 mg/dl (9-23); CHLORIDE 97 mmol/L (98-107); CHOLESTEROL 203 mg/dL (<200); LDL CHOLESTEROL 120 mg/dL (9-159); POTASSIUM 3.8 mmol/L (3.4-5.1); SGPT/ALT 10 U/L (5-49); TOTAL PROTEIN 7.8 gm/dL (6.0-8.0); TRIGLYCERIDES 75 mg/dl (<150)
== END | disposition home or self-care (01) ==
LOC: LAB 11:09
PROVIDERS: ATTEND Nurse Practitioner Primary Care
DX: D72.810 Lymphocytopenia (principal); E78.1 Pure hyperglyceridemia; E55.9 Vitamin D deficiency, unspecified